=== PATIENT | female | born 1965 | race Caucasian/White ===

== ENCOUNTER 2020-02-06 16:58 | Emergency (ER) | payer SELFPAY ==
--- NOTE | 2020-02-06 18:57 | EDM.PDOC ---
ED HPI GENERAL MEDICAL PROBLEM - General Chief Complaint: ENT Problem Stated Complaint: BOTTOM LEFT JAW PAIN Time Seen by Provider: 02/06/20 18:40 Source of Information: Reports: Patient, Family History Limitations: Reports: No Limitations - History of Present Illness INITIAL COMMENTS - FREE TEXT/NARRATIVE: 54-year-old female with left-sided jaw pain now with swelling over the past 24 hours. She has had 2 chips broken off the tooth over the past 3 weeks. No fevers or chills. Onset: Gradual Duration: Week(s): (3 weeks, especially worse the last 2 days) Left Jaw Pain Score (Numeric/FACES): 8 - Related Data Allergies Allergy/AdvReac Type Severity Reaction Status Date / Time clindamycin Allergy Hives Verified 02/06/20 18:16 erythromycin base Allergy Nausea Verified 02/06/20 18:16 [Erythromycin Base] Home Meds: Home Meds Pedi Multivit No.25/Folic Acid [Flintstones Multivit Chew Tab] 2 tab PO DAILY 04/17/14 [History] Alendronate Sodium 70 mg PO WEEKLY 02/06/20 [History] Cyanocobalamin (Vitamin B-12) [Vitamin B-12] 1 tab PO DAILY 02/06/20 [History] Cyclobenzaprine HCl 5 - 10 mg PO TID PRN 02/06/20 [History] FLUoxetine HCl [Fluoxetine] 40 mg PO DAILY 02/06/20 [History] Loratadine 10 mg PO DAILY 02/06/20 [History] Metoclopramide [Reglan] 5 - 15 mg PO DAILY PRN 02/06/20 [History] Omeprazole 20 mg PO DAILY 02/06/20 [History] Pramipexole [Mirapex] 0.125 mg PO BEDTIME 02/06/20 [History] SUMAtriptan 100 mg PO DAILY PRN 02/06/20 [History] Zolpidem Tartrate [Zolpidem Tartrate ER] 1 tab PO BEDTIME 02/06/20 [History] busPIRone [Buspar] 15 mg PO TID 02/06/20 [History] valACYclovir HCl [Valacyclovir] 500 mg PO BID 02/06/20 [History] Past Medical History Gastrointestinal History: Reports: Irritable Bowel Syndrome Psychiatric History: Reports: Anxiety, Depression - Past Surgical History Head Surgeries/Procedures: Reports: None GI Surgical History: Reports: Bariatric Procedure, Cholecystectomy Dermatological Surgical History: Reports: None Social & Family History - Tobacco Use Smoking Status *Q: Former Smoker Years of Tobacco use: 5 Packs/Tins Daily: 1 Used Tobacco, but Quit: No - Caffeine Use Caffeine Use: Reports: Soda - Recreational Drug Use Recreational Drug Use: No ED ROS ENT - Review of Systems Review Of Systems: See Below Constitutional: Denies: Fever, Chills HEENT: Reports: Dental Pain GI/Abdominal: Reports: No Symptoms Skin: Denies: Bruising, Erythema (No bruising or erythema over the swollen area of the jaw) Neurological: Reports: No Symptoms ED EXAM, ENT - Physical Exam Exam: See Below Exam Limited By: No Limitations General Appearance: Alert, No Apparent Distress (Looks uncomfortable but not distressed) Mouth/Throat: Other (She does have a posterior fracture and about 33% of the tooth missing on the first molar left side mandible. She does have soft tissue swelling and palpable tenderness of the mandible. No significant swelling or erythema of the gingiva) Respiratory/Chest: No Respiratory Distress Course - Vital Signs Last Recorded V/S: Last Vital Signs Temp 94.9 F L 02/06/20 18:15 Pulse 92 02/06/20 18:15 Resp 14 02/06/20 18:15 BP 128/88 02/06/20 18:15 Pulse Ox 99 02/06/20 18:15 - Re-Assessments/Exams Free Text/Narrative Re-Assessment/Exam: 02/06/20 18:56 Patient is likely developing a dental abscess of the molar on the left mandible. She was placed on Pen-Vee K 500 mg 4 times a day for 10 days, given 10 hydrocodone to take along with ibuprofen and needs to recheck with her dentist when she returns home on Sunday or Sunday. She can return if worsening such as increased swelling, vomiting the medication or fever. Departure - Departure Time of Disposition: 19:06 Disposition: Home, Self-Care 01 Clinical Impression: Dental abscess - Discharge Information Instructions: Dental Abscess Referrals: Martha Andersen PA-C [Primary Care Provider] - Forms: ED Department Discharge Care Plan Goals: Take antibiotic 4 times a day until rechecked by dentistry. Continue with ibuprofen or naproxen and add stronger pain medication as prescribed if needed. Return if worsening such as increased pain or swelling, fever or vomiting or medications. Sepsis Event Note (ED) - Evaluation Sepsis Screening Result: No Definite Risk - Focused Exam Vital Signs: Vital Signs Temp Pulse Resp BP Pulse Ox 02/06/20 18:15 94.9 F L 92 14 128/88 99 02/06/20 18:12 94.9 F L 92 14 128/88 99
== END 2020-02-06 19:08 | disposition home or self-care (01) ==
LOC: JP.ED 16:58
DX: K04.7 Periapical abscess without sinus (principal); F41.9 Anxiety disorder, unspecified; F32.9 Major depressive disorder, single episode, unspecified; Z87.891 Personal history of nicotine dependence; Z88.1 Allergy status to other antibiotic agents; Z79.899 Other long term (current) drug therapy
CPT/HCPCS: 99283

== ENCOUNTER 2023-08-07 09:14 | Emergency (ER) | payer OTHER ==
[2023-08-07 09:30] LABS: BASOPHILS ABSOLUTE AUTO 0.03 K/uL (0.00-0.10); BASOPHILS PERCENT AUTO 0.5 % (0.1-1.3); EOSINOPHILS PERCENT AUTO 0.4 % (0.0-5.4); HEMATOCRIT 36.5 % (34.3-46.0); IMMATURE GRAN PERCENT AUTO 1.8 % (0.0-0.7); LYMPHOCYTES ABSOLUTE AUTO 1.06 K/uL (0.8-3.3); LYMPHOCYTES PERCENT AUTO 18.7 % (11.4-47.7); MEAN CORPUSCULAR HEMOGLOBIN 31.6 pg (31.6-35.5); MEAN CORPUSCULAR HGB CONC 32.9 g/dL (31.6-35.5); MEAN CORPUSCULAR VOLUME 96.1 fL (81.4-99.0); MONOCYTES PERCENT AUTO 7.1 % (3.3-12.6); NEUTROPHILS ABSOLUTE AUTO 4.05 K/uL (1.0-7.6); NEUTROPHILS PERCENT AUTO 71.5 % (40.0-78.1); PLATELET COUNT,PLT 289 K/uL (130-375); WHITE BLOOD CELL COUNT,WBC 5.7 K/uL (3.2-11.0)
[2023-08-07 09:35] LABS: EOSINOPHILS ABSOLUTE AUTO 0.02 K/uL (0.00-0.40)
[2023-08-07 09:36] LABS: BLOOD UREA NITROGEN,BUN 13 mg/dL (7-18); CALCIUM 8.2 mg/dL (8.5-10.1); CARBON DIOXIDE,CO2 25 mmol/L (21-32); CHLORIDE,CL 105 mmol/L (100-108); CREATININE 0.7 mg/dL (0.6-1.0); ESTIMATED GFR 101 mL/min (>60); GLUCOSE RANDOM 96 mg/dL (74-106); POTASSIUM,K 3.2 mmol/L (3.6-5.2); SODIUM,NA 138 mmol/L (140-148)
[2023-08-07] MEDS ORDERED: Iopamidol 612 MG/ML 100 ML Bottle IV PRN (09:36)
[2023-08-07] MEDS ORDERED: Sodium Chloride 0.9% 10 ML Syringe FLUSH PRN (09:36)
[2023-08-07] MEDS ORDERED: Sodium Chloride 0.9% 80 ML IV ONE (09:36)
[2023-08-07 09:50] LABS: ANION GAP 11.2 mmol/L (5.0-14.0)
[2023-08-07] MEDS ORDERED: Naloxone 0.4 MG/ML SDV IVPUSH PRN (11:09)
[2023-08-07] MEDS ORDERED: HYDROmorphone 0.5 MG/0.5 ML Syringe IVPUSH ONE (11:09)
[2023-08-07] MEDS ORDERED: Acetaminophen 500 MG Tab PO ONE (13:34)
[2023-08-07] MEDS ORDERED: Ibuprofen 400 MG Tab PO ONE (13:34)
== END 2023-08-07 15:40 | disposition home or self-care (01) ==
LOC: JP.ED 09:14
DX: R07.2 Precordial pain (principal); M25.571 Pain in right ankle and joints of right foot; Z79.899 Other long term (current) drug therapy; Z88.1 Allergy status to other antibiotic agents; V49.40XA Driver injured in collision with unspecified motor vehicles in traffic accident, initial encounter; Y92.410 Unspecified street and highway as the place of occurrence of the external cause
CPT/HCPCS: 36415; 71260; 72125; 73610; 74177; 76377; 80048; 84484; 85025; 93005; 96374; 99285; A9270; J1170; J3490; Q9967